=== PATIENT | female | born 1990 | race Caucasian/White ===

== ENCOUNTER 2016-09-06 18:21 | Inpatient (IN) | payer MEDICAID, OTHER ==
[~2016-09-06] VITALS: Ht 170.2 cm; Wt 110.1 kg
[2016-09-06] MEDS ORDERED: CALC600T71 PO (18:41)
[2016-09-06] MEDS ORDERED: LORA1TAB12 PO (18:41)
[2016-09-06] MEDS ORDERED: NALT50TA4 PO (18:41)
[2016-09-06] MEDS ORDERED: VENL100T PO (18:41)
[2016-09-06] MEDS ORDERED: HYDR10T PO (18:41)
[2016-09-06] MEDS ORDERED: LAMI1TAB7 PO (18:41)
[2016-09-06] MEDS ORDERED: ATEN100T PO (18:41)
[2016-09-06] MEDS ORDERED: BUSP15TA47 PO (18:41)
[2016-09-06 19:47] LABS: MEAN CORPUSCULAR HEMOGLOBIN 35.3 pg (27.0-33.0); MEAN CORPUSCULAR HGB CONC 34.3 g/dl (32.0-36.5); MEAN CORPUSCULAR VOLUME 102.9 fl (80.0-96.0); RED CELL DISTRIBUTION WIDTH 12.3 % (11.5-14.5); WHITE BLOOD COUNT 6.1 K/mm3 (4.0-10.0)
[2016-09-06 20:08] LABS: CONTROL LINE HCG INT CTR LINE PRESENT
[2016-09-06 20:22] LABS: ALBUMIN 3.5 GM/DL (3.2-5.2); ALKALINE PHOSPHATASE 97 U/L (45-117); ALT/SGPT 33 U/L (12-78); ANION GAP 10 MEQ/L (8-16); AST/SGOT 29 U/L (15-37); BILIRUBIN,DIRECT 0.2 MG/DL (0.0-0.2); BILIRUBIN,TOTAL 0.6 MG/DL (0.2-1.0); BLOOD UREA NITROGEN 5 MG/DL (7-18); CALCIUM LEVEL 8.4 MG/DL (8.5-10.1); CARBON DIOXIDE LEVEL 20 MEQ/L (21-32); CHLORIDE LEVEL 111 MEQ/L (98-107); CREATININE FOR GFR 0.59 MG/DL (0.55-1.02); GLOMERULAR FILTRATION RATE > 60.0 (>60); GLUCOSE, FASTING 85 MG/DL (70-105); SODIUM LEVEL 141 MEQ/L (136-145)
[2016-09-06 21:07] LABS: METHADONE URINE NEGATIVE (NEGATIVE)
[2016-09-06] MEDS ORDERED: CALCCAP6 PO (22:36)
[2016-09-06] MEDS ORDERED: LAMO25TA2 PO (22:36)
[2016-09-06 22:40] VITALS: BP 165/96
[2016-09-06] MEDS ORDERED: LORazepam 1 MG TAB PO PRN (23:30)
[2016-09-06] MEDS ORDERED: lamoTRIgine 25 MG TAB PO ONE (23:50)
[2016-09-06] MEDS ORDERED: busPIRone 5 MG TAB PO ONE (23:50)
[2016-09-06] MEDS ORDERED: NALTREXONE 50 MG TAB PO ONE (23:51)
[2016-09-06] MEDS ORDERED: VENLAFAXINE 37.5 MG TAB PO ONE (23:52)
[2016-09-07] MEDS ORDERED: traZODone 50 MG TAB PO PRN (01:15)
[2016-09-07] MEDS ORDERED: ACETAMINOPHEN TAB 650MG DOSE (2X325MG) PO PRN (01:15)
[2016-09-07] MEDS ORDERED: MAALOX 30 ML SUSP *UDC PO PRN (01:15)
[2016-09-07] MEDS ORDERED: MOM 30ML SUSPENSION UDC PO PRN (01:15)
--- NOTE | 2016-09-07 06:41 | ECGEPIP ---
Stationary ECG Study [facility] - ED Test Date: 2016-09-06 Pat Name: ADRIENNE CONNOLLY Department: Room: [place] [address] Gender: F Coding Specialist Home Health: ct : 1990 Requested By: SAMANTHA VELASQUEZ Order Number: [id number] Reading MD: Toi Rodriguez Measurements Intervals [place] Rate: 51 P: 15 NC: 155 QRS: 62 QRSD: 98 T: 53 QT: 415 QTc: 384 Interpretive Statements SINUS BRADYCARDIA NONSPECIFIC T-WAVE ABNORMALITY NO PRIORS Electronically Signed On 09-07-2016 6:40:52 EDT by Toi Rodriguez
[2016-09-07] MEDS ORDERED: lamoTRIgine 25 MG TAB PO SCH (09:00)
[2016-09-07] MEDS ORDERED: ATENOLOL 50 MG TAB PO SCH (09:00)
[2016-09-07] MEDS: LORazepam 1 MG TAB PO PRN (09:55)
[2016-09-07] MEDS: busPIRone 5 MG TAB PO SCH ×3 (09:57→21:49)
[2016-09-07] MEDS: VENLAFAXINE 37.5 MG TAB PO SCH ×2 (09:57→21:49)
[2016-09-07] MEDS: CALCIUM/VITAMIN D 500 MG TAB PO SCH (09:57)
[2016-09-07] MEDS: NICOTINE 21MG/24HR 1 EA TRANSDERMAL TD SCH (09:58)
[2016-09-07] MEDS: ATENOLOL 50 MG TAB PO SCH (09:58)
--- NOTE | 2016-09-07 10:01 | HPEPDOC ---
Medical History and Physical Date of Admission September 06, 2016 at 21:33 History and Physical PCP: Dr Levy ATTENDING: Dr. Serafin Delaney HPI: 26yoF admitted to [facility] for unspecified depressive disorder, being medically examined today. Patient was transferred from [facility] following overdose of hydroxyzine. No acute medical complaints today. Denies any fevers, chills, weakness, fatigue, GASTELUM, CP, SOB, cough, palpitations, abdominal pain, N/V/D or changes in bowel or bladder habits. PMHx: Depression Anxiety History of self-mutilation Tobacco use Hypertension PSHX: Appendectomy Meckel's diverticulum Gastric bypass 01/16 [facility] 2013 SOCHX: Resides in: [facility] Marital Status: Single Kids: 1 Employment: Unemployed Tobacco use: 1 pack per day ETOH: States she had 2 drinks 2 weeks ago Illicit Drugs: Marijuana every 3 months IV Drug Use: Denies Tattoos done unprofessionally: Denies FAMHX: Mother: Alive, well Father: Alive, hypertension Siblings: 4 brothers Alive, well Children: Alive, well Unexpected deaths due to medical reasons: None. ROS: As noted in HPI, otherwise 11pt ROS of systems reviewed and remarkable only for Mirena IUD, LMP unknown. PE: GEN:26 yo F, appears stated age. Well-nourished, well developed. No acute distress. Alert and oriented x 3. Pleasant, interactive. HEENT: Normocephalic, atraumatic. Pupils are equal, round, and reactive to light. Extraocular movements are intact. No nystagmus appreciated. Sclera are nonicteric. Conjunctiva without injection. Nose midline. Nasal turbinates without bogginess. EACs both patent BL. TMs both visualized and [place] with good cone of light, no bulging or erythema. No facial asymmetry. Moist mucous membranes. Dentition fair. Pharynx pink and moist, no cobblestoning. Neck supple , trachea midline. No lymphadenopathy or thyromegaly appreciated. CHEST: Regular rate and rhythm, +S1, +S2 LUNGS: Clear to auscultation bilaterally. No wheezes, rales, or rhonchi. Breathing appears symmetric and easy. Patient is speaking in full sentences. No accessory muscle use. ABD: Round, soft, non-tender, non-distended. +Bowel sounds throughout. No rebound or guarding. No costovertebral angle tenderness. EXT: Pulses 2+ bilaterally dorsalis pedis and radial. No lower extremity edema appreciated. SKIN: [place], dry, warm. Capillary refill <2sec. No rashes. NEURO: Alert and oriented x 3. Cranial nerves III-XII are intact. No focal deficits appreciated. EK09/06/16 SINUS BRADYCARDIA 51 bpm NONSPECIFIC T-WAVE ABNORMALITY NO PRIORS. A&P: 26yoF admitted to [facility] for unspecified depressive disorder 1. Psych. Plan per Psychiatry. EKG on file. 2. Nicotine dependence. Patch available. 3. Hypertension. Continue atenolol 100 mg by mouth daily. Monitor BP. 4. Follow up with PCP on discharge. 5. Substance use. Per psychiatry. 6. Patient states she takes Lamictal for her mood. No prior history of seizure activity. 7. Elevated MCV. Add vitamin B12 and folate labs. TSH is noted within normal limits. Will also check vitamin D level. 8. History of gastric bypass. 9. Staff member present throughout exam Elsa BLUM. Vital Signs Vital Signs Date Time Temp Pulse Resp B/P (MAP) Pulse Ox O2 Delivery O2 Flow Rate FiO2 09/06/16 22:40 99.0 54 16 165/96 (119) 09/06/16 18:27 100 Room Air Laboratory Data Labs 24H Laboratory Tests 2 09/06/16 19:21: Urine Amphetamines Screen NEGATIVE, Urine Benzodiazepines Screen NEGATIVE, Urine Opiates Screen NEGATIVE, Urine Methadone Screen NEGATIVE, Urine Barbiturates Screen NEGATIVE, Urine Phencyclidine Screen NEGATIVE, Urine Cocaine Metabolite Screen NEGATIVE, Urine Cannabinoids Screen POSITIVEH 09/06/16 19:22: Anion Gap 10, Glomerular Filtration Rate > 60.0, Calcium Level 8.4L, Aspartate Amino Transf (AST/SGOT) 29, Alanine Aminotransferase (ALT/SGPT) 33, Alkaline Phosphatase 97, Total Bilirubin 0.6, Direct Bilirubin 0.2, Total Creatine Kinase 54, Total Protein 7.0, Albumin 3.5, Albumin/Globulin Ratio 1.00, Thyroid Stimulating Hormone (TSH) 2.520, Human Chorionic Gonadotropin, Qual NEGATIVE, Salicylates Level 3.0L, Acetaminophen Level < 2.0L, Ethyl Alcohol Level < 0.003 CBC/BMP Laboratory Tests 09/06/16 19:22 Red Blood Count 4.65, Mean Corpuscular Volume 102.9 H, Mean Corpuscular Hemoglobin 35.3 H, Mean Corpuscular Hemoglobin Concent 34.3, Red Cell Distribution Width 12.3 Home Medications Scheduled (Calcium/Vitamin D3 600-400 mg-Unit) 1 Cap Cap, 1 CAP PO DAILY Atenolol (Atenolol) 100 Mg Tab, 100 MG PO DAILY Buspirone HCl (Buspirone HCl) 15 Mg Tab, 1 TAB PO TID Lamotrigine (Lamotrigine) 25 Mg Tab, 50 MG PO BID Naltrexone HCl (Naltrexone HCl) 50 Mg Tab, 1 TAB PO QHS Venlafaxine Hydrochloride (Venlafaxine HCl) 100 Mg Tab, 1.5 TAB PO BID Scheduled PRN Hydroxyzine HCl (Hydroxyzine HCl) 10 Mg Tab, 10 MG PO QID PRN for ANXIETY Lorazepam (Lorazepam) 1 Mg Tab, 1 MG PO Q8H PRN for ANXIETY Allergies Coded Allergies: Sulfa Drugs (Unverified Allergy, Severe, 08/04/12) Replaces SULFAMETHOXAZ Sulfa Drugs Cross Reactors (Unverified Allergy, Severe, 08/04/12) Replaces SULFAMETHOXAZ Sulfamethoxazole (Unverified Allergy, Severe, 08/04/12) Replaces SULFAMETHOXAZ Trimethoprim (Unverified Allergy, Severe, 08/04/12) Replaces SULFAMETHOXAZ Uncoded Allergies: UNISIN (Allergy, Unknown, 04/17/04) Marcy Conn September 07, 2016 10:01
[2016-09-07] MEDS: MULTIVITAMINS/MINERALS THERAP 1 TAB PO SCH (11:55)
[2016-09-07 12:10] LABS: FOLATE 5.6 NG/ML (>5.4)
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
[2016-09-07 18:00] VITALS: BP 146/88
[2016-09-07] MEDS: NALTREXONE 50 MG TAB PO SCH (21:49)
[2016-09-07] MEDS: lamoTRIgine 25 MG TAB PO SCH (21:49)
[2016-09-08 07:03] VITALS: BP 122/83
[2016-09-08 07:15] LABS: MEAN CORPUSCULAR HEMOGLOBIN 35.7 pg (27.0-33.0); MEAN CORPUSCULAR HGB CONC 34.5 g/dl (32.0-36.5); MEAN CORPUSCULAR VOLUME 103.5 fl (80.0-96.0); RED CELL DISTRIBUTION WIDTH 12.5 % (11.5-14.5); WHITE BLOOD COUNT 6.3 K/mm3 (4.0-10.0)
[2016-09-08] MEDS: VENLAFAXINE 37.5 MG TAB PO SCH ×2 (08:35→21:12)
[2016-09-08] MEDS: NICOTINE 21MG/24HR 1 EA TRANSDERMAL TD SCH (08:35)
[2016-09-08] MEDS: lamoTRIgine 25 MG TAB PO SCH ×2 (08:36→21:12)
[2016-09-08] MEDS: MULTIVITAMINS/MINERALS THERAP 1 TAB PO SCH (08:36)
[2016-09-08] MEDS: CALCIUM/VITAMIN D 500 MG TAB PO SCH (08:36)
[2016-09-08] MEDS: busPIRone 5 MG TAB PO SCH ×3 (08:36→21:12)
[2016-09-08] MEDS: ATENOLOL 50 MG TAB PO SCH (08:39)
[2016-09-08] MEDS ORDERED: VITAMIN D 50,000 UNITS CAPSULE (ERGOCALCIFEROL 1.25MG) PO SCH (09:00)
[2016-09-08 12:00] VITALS: BP 134/96
--- NOTE | 2016-09-08 14:01 | MHIPNPDOC ---
[facility] Progress Note Progress Note DATE OF SERVICE: 09/08/16 HISTORY: day 3 of admission VITAL SIGNS: See below. NEW TEST RESULTS: na. CURRENT MEDICATIONS: See below. MENTAL STATUS EXAMINATION: Patient is a 26-year old female, who is dressed in hospital attire, hair is disheveled, hygiene is adequate, eye contact is good.. Speech: Is clear Language skills are intact Thought processes including: goal oriented. Thought content: discharge. Abstract reasoning, and computation: good. Description of associations: good. Description of abnormal or psychotic thoughts: denies suicidal and homicidal ideation, plan or intent. No psychotic symptoms illicted. Judgment: fair Insight: fair. Orientation: oriented to person, place, time and situation Recent and remote memory: intact Attention span and concentration: adequate. Fund of knowledge: adequate. Mood: good. Affect: congruent. DIAGNOSES: 1. bipolar II disorder, current episode depressed 2. nicotine dependent 3. alcohol abuse by history - in remission 4. Cannabis abuse ASSESSMENT:Pt has been participating in group activities on the unit. Staff report she is in a good mood and interacts well with others. Plastics Supervisor has observed her over the past 48 hours and finds her to be much more stable than yesterday. Pt is future oriented and wants to return to her family. She agrees to continue Lamictal titration as an out patient. Pt agrees to dispose of old medication that is at her home and no longer prescribed for her. Pt discussed volunteer work with signwriter and the importance of having daily structure and meaningful activity to control anxiety was explained. She needs ongoing encouragement to take control of her life and to rely less on her parents. MANAGEMENT PLAN: Mother was contacted and agrees to check pts med supply to make sure she only has the meds currently prescribed for her available to her. Advised mother that in light of pts overdose with hydroxyzine the lorazepam prn prescribed by outpatient should be locked up away from [facility] and only used when necessary. No call back was received from pts provider at [facility] services. Plastics Supervisor wanted to inform them of pts hospitalization and the reason. Pt will be discharged tomorrow afternoon to home with parents and son. FU appts for PCP and smoking cessation are to be made as well as checking on behavioral health appts. Pt will be given a list of apts. Lamictal at 25 mg will be prescribed upon discharge to add to her 100 mg daily dose. TIME SPENT: 30 minutes. Vital Signs Vital Signs Date Time Temp Pulse Resp B/P (MAP) Pulse Ox O2 Delivery O2 Flow Rate FiO2 09/08/16 12:00 97.2 55 16 134/96 (109) 09/08/16 09:00 Room Air 09/06/16 18:27 100 Laboratory Data CBC/BMP Laboratory Tests 09/08/16 06:47 Red Blood Count 4.40, Mean Corpuscular Volume 103.5 H, Mean Corpuscular Hemoglobin 35.7 H, Mean Corpuscular Hemoglobin Concent 34.5, Red Cell Distribution Width 12.5 Current Medications Current Medications Acetaminophen (Tylenol Tab) 650 mg Q6HP PRN PO HEADACHE or DISCOMFORT; Start at 01:15; Stop 10/07/16 at 01:14 Al Hydrox/Mg Hydrox/Simethicone (Mylanta) 30 ml Q4HP PRN PO HEARTBURN/ INDIGESTION; Start 09/07/16 at 01:15; Stop 10/07/16 at 01:14 Atenolol (Tenormin) 100 mg DAILY PO ; Start 09/07/16 at 09:00; Stop 09/07/16 at 09 :00; Status DC Atenolol (Tenormin) 100 mg DAILY PO Last administered on 09/08/16 08:39; Start 09/07/16 at 09:00; Stop 10/07/16 at 08:59 Buspirone HCl (Buspar) 15 mg TID PO Last administered on 09/08/16 08:36; Start 09/07/16 at 09:00; Stop 10/07/16 at 08:59 Calcium/Vitamin D (Oscal D) 500 mg DAILY PO Last administered on 09/08/16 08:36 ; Start 09/07/16 at 09:00; Stop 10/07/16 at 08:59 Home Med (Med Rec Complete!) ASDIRECTED XX ; Start 09/06/16 at 22:45; Stop at 22:45; Status DC Lamotrigine (LaMICtal) 50 mg BID PO Last administered on 09/07/16 09:56; Start 09/07/16 at 09:00; Stop 09/07/16 at 12:15; Status DC Lamotrigine (LaMICtal) 50 mg QAM PO Last administered on 09/08/16 08:36; Start 09/08/16 at 09:00; Stop 10/07/16 at 08:59 Lamotrigine (LaMICtal) 75 mg QHS PO Last administered on 09/07/16 21:49; Start 09/07/16 at 21:00; Stop 10/07/16 at 20:59 Lorazepam (Ativan) 1 mg BIDP PRN PO ANXIETY/AGITATION Last administered on 09:55; Start 09/07/16 at 01:15; Stop 09/10/16 at 01:14 Lorazepam (Ativan) 1 mg Q8H PRN PO ANXIETY; Start 09/06/16 at 23:30; Stop at 23:29; Status Cancel Magnesium Hydroxide (Milk Of Magnesia) 30 ml DAILYPRN PRN PO CONSTIPATION; Start 09/07/16 at 01:15; Stop 10/07/16 at 01:14 Multivitamins (Theragram-M) 2 tab DAILY PO Last administered on 09/08/16 08:36 ; Start 09/07/16 at 09:00; Stop 10/07/16 at 08:59 Naltrexone HCl (Revia) 50 mg QHS PO Last administered on 09/07/16 21:49; Start 09/07/16 at 21:00; Stop 10/07/16 at 20:59 Nicotine (Nicoderm Cq 21mg) 1 patch DAILY TD Last administered on 09/08/16 08: 35; Start 09/07/16 at 09:00; Stop 10/07/16 at 08:59 Trazodone HCl (Desyrel) 50 mg QHSP PRN PO INSOMNIA Last administered on 21:49; Start 09/07/16 at 01:15; Stop 10/07/16 at 01:14 Venlafaxine HCl (Effexor) 150 mg BID PO Last administered on 09/08/16 08:35; Start 09/07/16 at 09:00; Stop 10/07/16 at 08:59 Vitamin D (Drisdol) 50,000 units @09 PO Last administered on 09/08/16 09:06; Start 09/08/16 at 09:00; Stop 10/08/16 at 08:59 Allergies Coded Allergies: Sulfa Drugs (Unverified Allergy, Severe, 08/04/12) Replaces SULFAMETHOXAZ Sulfa Drugs Cross Reactors (Unverified Allergy, Severe, 08/04/12) Replaces SULFAMETHOXAZ Sulfamethoxazole (Unverified Allergy, Severe, 08/04/12) Replaces SULFAMETHOXAZ Trimethoprim (Unverified Allergy, Severe, 08/04/12) Replaces SULFAMETHOXAZ Ampicillin (Verified Allergy, Unknown, 09/07/16) Sulbactam (Verified Allergy, Unknown, 09/07/16) Stephanie Cid September 08, 2016 14:01
[2016-09-08 18:24] VITALS: BP 155/72
[2016-09-08] MEDS ORDERED: traZODone 100 MG TAB PO SCH (21:00)
[2016-09-08] MEDS: LORazepam 1 MG TAB PO PRN (21:12)
[2016-09-08] MEDS: NALTREXONE 50 MG TAB PO SCH (21:12)
[2016-09-09 06:50] VITALS: BP 129/65
[2016-09-09] MEDS ORDERED: LAMO25TA2 PO (08:40)
[2016-09-09] MEDS: busPIRone 5 MG TAB PO SCH (08:42)
[2016-09-09] MEDS: MULTIVITAMINS/MINERALS THERAP 1 TAB PO SCH (08:42)
[2016-09-09 08:43] VITALS: BP 129/65
[2016-09-09] MEDS: VENLAFAXINE 37.5 MG TAB PO SCH (08:43)
[2016-09-09] MEDS: lamoTRIgine 25 MG TAB PO SCH (08:43)
[2016-09-09] MEDS: ATENOLOL 50 MG TAB PO SCH (08:43)
[2016-09-09] MEDS: CALCIUM/VITAMIN D 500 MG TAB PO SCH (08:43)
[2016-09-09] MEDS: NICOTINE 21MG/24HR 1 EA TRANSDERMAL TD SCH (08:45)
--- NOTE | 2016-09-09 11:43 | MHDSPDOC ---
[facility] Discharge Summary Discharge Summary DATE OF ADMISSION: September 06, 2016 at 21:33 DATE OF DISCHARGE: September 09, 2016 DISCHARGE DIAGNOSES: 1. bipolar II disorder, most recent episode depressed 2. Alcohol dependence 3. Nicotine dependence REASON FOR ADMISSION: pt intentionally overdosed on Vistaril as she wanted to get to sleep and the medication was not working. She was texting her friend every few minutes telling him she had taken more and more of the medication. CONSULTANTS INVOLVED: Medicine and Psychiatry TREATMENT AND PROGRESS ON THE UNIT : Pt was able to stabilize rather quickly on the unit. She claims no recall of the events leading up to her admission. She does admit to taking vistaril tablets over and over until she reached approximately 160 mg. She was recently seen at the [facility] where she receives outpatient mental health treatment. In addition to medication mgt she receives therapy there. She has been established there for some time. HOSPITAL COURSE: pt participated in several group activities. She was well liked by her roommate. She met regularly with auto service writer and other mental health staff. She took medications as prescribed. Her lamictal may be too low at 100 mg daily. It was increased to 125 mg. It is recommended it be increased another 25 mg next week for a total daily dose of 150 mg. Hopefully this will lessen the depressive episodes she experiences in a year due to bipolar disorder. DISCHARGE ASSESSMENT: Pt is very dependent on others for her wellbeing and happiness. She would benefit from getting involved in activities that would improve her self-reliance. Volunteer work, structure and meaningful activity is recommended. She mentioned [facility] [employer] or hospital volunteering. Either would be good for her. She is hoping to get SSDI benefits but that will only allow her to subsist, not thrive. She is far too young not to work or contribute to something in her life. Social Sciences Department Chair spoke with pts mother, Renita, who advises that Kaden does not stay awake at night disturbing his mother. Therefore Lovely can take her trazodone as needed to help her sleep. Social Sciences Department Chair asked that her mother oversee the removal of old medications from Lovely's access to prevent misuse of meds. Gave mother a list of current medications. Mother indicates that pt is not always truthful and can be very manipulative. This should be addressed in therapy. It appears that Lovely's behavior prior to admission was to gain attention perhaps of the friend Ministerio. Her insight would improve and thus improve her behavior with DBT and/or CBT therapy. It is interesting to note that Lovely had gastric bypass surgery August 14, 2015 but she is no longer losing weight. Her Vitamin D level was low on admission even though she has meds ordered for this. Pt should be connected with a weight loss support group and make a follow up appt with PCP. She states she would like to quit smoking and I have asked the hospital unit coordinator to make an appt for her with Dr. Levy to address this. Pt also needs the medicaid transportation number so she can get herself to appts and not rely on her parents car for this. MENTAL STATUS EXAMINATION ON DISCHARGE: Patient is a 26-year old female, who is wearing hospital attire, makes good eye contact and cooperative. Speech is spontaneous. Language skills are intact Thought processes including: goal directed and linear Thought content: wants to go home Abstract reasoning, and computation: fair. Description of associations: good. Description of abnormal or psychotic thoughts: denies SI and HI, no psychotic symptoms present Judgment: fair Insight: fair Orientation to person, place, time and situation Recent and remote memory: grossly intact Attention span and concentration: good Fund of knowledge: good Mood: euthymic Affect: congruent MEDICATIONS ON DISCHARGE: - Lamotrigine for mood stabilization. - Trazodone for insomnia - Buspar for anxiety -Venlafaxine for anxiety and depression PLAN/FOLLOWUP ARRANGEMENTS: follow up as arranged with providers at [facility][1]. I have not renewed or continued lorazepam as an outpatient medication in light of her recent suicide attempt. I would recommend this medication be stopped as pt can learn to control her anxiety and there are other safer medications available to her. The amount of time spent in the coordination of care for this patient was approximately 30 minutes. Vital Signs/I&Os Vital Signs Date Time Temp Pulse Resp B/P (MAP) Pulse Ox O2 Delivery O2 Flow Rate FiO2 09/09/16 08:43 52 129/65 09/09/16 06:50 97.3 16 09/08/16 09:00 Room Air 09/06/16 18:27 100 Medications Scheduled (Calcium/Vitamin D3 600-400 mg-Unit) 1 Cap Cap, 1 CAP PO DAILY, (Reported) Atenolol (Atenolol) 100 Mg Tab, 100 MG PO DAILY, (Reported) Buspirone HCl (Buspirone HCl) 15 Mg Tab, 1 TAB PO TID, (Reported) Lamotrigine (Lamotrigine) 25 Mg Tab, 25 MG PO BID for DEPRESSION for 7 Days, #7 add to 50 mg already prescribed at hs total daily dose is now 125 mg. Naltrexone HCl (Naltrexone HCl) 50 Mg Tab, 1 TAB PO QHS, (Reported) Venlafaxine Hydrochloride (Venlafaxine HCl) 100 Mg Tab, 1.5 TAB PO BID, ( Reported) Scheduled PRN Hydroxyzine HCl (Hydroxyzine HCl) 10 Mg Tab, 10 MG PO QID PRN for ANXIETY, ( Reported) Allergies Coded Allergies: Sulfa Drugs (Unverified Allergy, Severe, 08/04/12) Replaces SULFAMETHOXAZ Sulfa Drugs Cross Reactors (Unverified Allergy, Severe, 08/04/12) Replaces SULFAMETHOXAZ Sulfamethoxazole (Unverified Allergy, Severe, 08/04/12) Replaces SULFAMETHOXAZ Trimethoprim (Unverified Allergy, Severe, 08/04/12) Replaces SULFAMETHOXAZ Ampicillin (Verified Allergy, Unknown, 09/07/16) Sulbactam (Verified Allergy, Unknown, 09/07/16) Stephanie Cid September 09, 2016 11:43
== END 2016-09-09 14:30 | disposition home or self-care (01) | DRG 753 ==
LOC: M ED 19:00 → M ED INP 21:33 → M PSY 23:02
PROVIDERS: ADMIT Psychiatry & Neurology Psychiatry; ATTEND Psychiatry & Neurology Psychiatry
DX: F31.81 Bipolar II disorder (principal); I10 Essential (primary) hypertension; F17.200 Nicotine dependence, unspecified, uncomplicated; F10.20 Alcohol dependence, uncomplicated; Z88.2 Allergy status to sulfonamides; Z88.8 Allergy status to other drugs, medicaments and biological substances; Z88.0 Allergy status to penicillin; Z79.899 Other long term (current) drug therapy

== ENCOUNTER → 2018-08-18 | Outpatient (REF) | payer OTHER ==
[~2018-08-18] MED LIST: ATEN100T PO; BUSP15TA47 PO; CALC1TAB5 PO; CALCCAP6 PO; HYDR-643 PO; LAMI1TAB7 PO; LAMO25TA4 PO; LORA1TAB12 PO; NALT50TA4 PO; VENL100T PO
[2018-08-25 14:12] LABS: HPV HYBRID CAPTURE II Positive (Negative)
== END ==
LOC: M LAB LCGH 16:06
PROVIDERS: ATTEND Obstetrics & Gynecology
DX: Z12.4 Encounter for screening for malignant neoplasm of cervix (principal)

== ENCOUNTER 2024-03-20 10:27 | Day surgery (SDC) | payer OTHER ==
[~2024-03-20] VITALS: Ht 170.2 cm; Wt 148.6 kg
[~2024-03-20 10:27] MED LIST changes: +DULO1CAP6 PO; +GABA-1172 PO; +LEVOTAB10 PO; +LISI5TAB11 PO; -LORA1TAB12 PO; +LORA1TAB23 PO; +LURA40TA2 PO; +NS 250 ML IV ONE; +OMEP40CA5 PO; +ROPI0.5T33 PO; +VENTAER
[2024-03-20] MEDS ORDERED: propofoL 500 MG/50 ML VIAL As Ordered ONE (11:12)
[2024-03-20] MEDS ORDERED: propofoL 200 MG/20 ML VIAL As Ordered ONE (11:45)
[2024-03-20] MEDS ORDERED: LIDOCAINE 2% 100MG/5ML SDV (FOR ANES.) As Ordered ONE (12:09)
[2024-03-20] MEDS ORDERED: fentaNYL 100 MCG/2 ML INJECTION As Ordered ONE (12:10)
[2024-03-20 12:45] VITALS: TEMP 97.6
[2024-03-20 13:08] VITALS: BP 136/84; O2SAT 100
== END 2024-03-20 13:15 | disposition home or self-care (01) ==
LOC: M OPP 10:27
PROVIDERS: ATTEND Internal Medicine Gastroenterology
DX: K58.0 Irritable bowel syndrome with diarrhea (principal); K44.9 Diaphragmatic hernia without obstruction or gangrene; Z98.84 Bariatric surgery status; Z87.19 Personal history of other diseases of the digestive system; I10 Essential (primary) hypertension; G47.30 Sleep apnea, unspecified; Z79.899 Other long term (current) drug therapy; F17.210 Nicotine dependence, cigarettes, uncomplicated; Z90.49 Acquired absence of other specified parts of digestive tract; Z88.8 Allergy status to other drugs, medicaments and biological substances; Z88.0 Allergy status to penicillin; Z88.2 Allergy status to sulfonamides; Z91.048 Other nonmedicinal substance allergy status
CPT/HCPCS: 43239; 45380; 88305; J3010

== ENCOUNTER → 2024-12-06 | Outpatient (REF) | payer OTHER ==
[~2024-12-06] MED LIST changes: +LAMO-18 PO; -LAMO25TA4 PO; -NS 250 ML IV ONE
[2024-12-06 19:02] LABS: APPEARANCE, URINE CLEAR (CLEAR); BACTERIA, URINE AUTO NEGATIVE (NEGATIVE); BILIRUBIN, URINE AUTO NEGATIVE (NEGATIVE); BLOOD, URINE BLOOD NEGATIVE (NEGATIVE); GLUCOSE, URINE (UA) AUTO NEGATIVE (NEGATIVE); KETONE, URINE AUTO NEGATIVE (NEGATIVE); LEUKOCYTE ESTERASE, URINE AUTO NEGATIVE (NEGATIVE); NITRITE, URINE AUTO NEGATIVE (NEGATIVE); PROTEIN, URINE AUTO NEGATIVE (NEGATIVE); RBC, URINE AUTO 1 /HPF (0-3); SPECIFIC GRAVITY URINE AUTO 1.006 (1.002-1.035); SQUAMOUS EPITHELIAL CELL UR AU 1 /HPF (0-6); UROBILINOGEN, URINE AUTO 0.2 mg/dL (0.0-2.0); WBC, URINE AUTO 1 /HPF (0-3)
[2024-12-06 19:06] LABS: BASO # 0.0 10^3/uL (0.0-0.2); BASO % 0.4 % (0.0-1.0); EOS # 0.0 10^3/uL (0.0-0.5); EOS % 0.1 % (0.0-3.0); LYMPH # 2.0 10^3/uL (1.5-5.0); LYMPH % 21.2 % (24.0-44.0); MONO # 0.3 10^3/uL (0.0-0.8); MONO % 3.1 % (2.0-8.0); NEUTROPHILS # 6.9 10^3/uL (1.5-8.5); NEUTROPHILS % 74.9 % (36.0-66.0); PLATELET COUNT, AUTOMATED 546 10^3/uL (150-450)
[2024-12-06 19:17] LABS: ERYTHROCYTE SEDIMENTATION RATE 42 mm/hr (0-20)
[2024-12-06 22:00] LABS: TOTAL PROTEIN,RANDOM URINE 7.0 MG/DL (0.0-14.0)
[2024-12-07 02:11] LABS: ALT/SGPT 50 U/L (7.0-40); AST/SGOT 40 U/L (<34); C REACTIVE PROTEIN QUANTITATIV < 0.50 MG/DL (<1.0); CALCIUM LEVEL 9.7 MG/DL (8.5-10.1); CARBON DIOXIDE LEVEL 24 MMOL/L (20-31); CHLORIDE LEVEL 105 MMOL/L (98-107); COMPLEMENT C4 21.6 MG/DL (12-36); CREATININE FOR GFR 0.81 MG/DL (0.55-1.30); GLOMERULAR FILTRATION RATE > 90.0 (>60); POTASSIUM SERUM 5.1 MMOL/L (3.5-5.1); SODIUM LEVEL 139 MMOL/L (136-145)
== END ==
LOC: M SFHCRHEU 14:44
PROVIDERS: ATTEND Internal Medicine Rheumatology
DX: R76.8 Other specified abnormal immunological findings in serum (principal); R21 Rash and other nonspecific skin eruption; R53.83 Other fatigue; R51.9 Headache, unspecified; R63.4 Abnormal weight loss